=== PATIENT | female | born 2000 | race Two or more races ===

== ENCOUNTER 2022-02-11 18:17 | Emergency (ER) | payer MEDICAID, OTHER ==
[~2022-02-11] VITALS: Ht 160 cm; Wt 71.2 kg
[2022-02-11 18:47] VITALS: BP 118/70
[2022-02-11] MEDS ORDERED: TETANUS-DIPTH-ACEL PERTUSSIS 0.5ML SYR Tdap IM ONE (20:45)
== END 2022-02-11 23:01 | disposition home or self-care (01) ==
LOC: ER 18:17
DX: S61.412A Laceration without foreign body of left hand, initial encounter (principal); W26.8XXA Contact with other sharp object(s), not elsewhere classified, initial encounter; Y93.89 Activity, other specified; Y92.89 Other specified places as the place of occurrence of the external cause; Y99.8 Other external cause status
CPT/HCPCS: 12001; 73130; 90471; 90715